=== PATIENT | male | born 1945 | race Caucasian/White ===

== ENCOUNTER 2017-12-20 15:35 | Emergency (ER) | payer MEDICARE, OTHER ==
[2017-12-20 16:35] LABS: Basophils % (A) 0 %; Eosinophils # (A) 0.2 k/uL (0-0.7); Eosinophils % (A) 2 %; HCT 44.8 % (39.0-53.0); HGB 14.9 gm/dL (13.0-17.5); Lymphocytes # (A) 1.2 k/uL (1.0-4.8); Lymphocytes % (A) 12 %; MCH 30.9 pg (25.0-35.0); MCHC 33.3 g/dL (31.0-37.0); MCV 92.7 fL (80.0-100.0); Mean Platelet Volume 8.6; Monocytes # (A) 0.6 k/uL (0-1.0); Monocytes % (A) 6 %; Neutrophils # (A) 7.7 k/uL (1.3-7.7); Neutrophils % (A) 79 %; Platelet Count 235 k/uL (150-450); RBC 4.84 m/uL (4.30-5.90); RDW 13.7 % (11.5-15.5); WBC 9.8 k/uL (3.8-10.6)
[2017-12-20 16:45] LABS: RBC,Urine >182 /hpf (0-5)
[2017-12-20 16:46] LABS: Anion Gap 11 mmol/L; Blood Urea Nitrogen 28 mg/dL (9-20); Calcium 9.7 mg/dL (8.4-10.2); Carbon Dioxide 25 mmol/L (22-30); Chloride 105 mmol/L (98-107); Color,Urine Dark Red; Glucose 122 mg/dL (74-99); Potassium 4.3 mmol/L (3.5-5.1); Sodium 141 mmol/L (137-145)
[2017-12-20 16:47] LABS: Appearance,Urine Bloody (Clear)
--- NOTE | 2017-12-20 17:15 | ED ---
Male Urogenital HPI - General Chief complaint: Urogenital Stated complaint: Hemturia Time Seen by Provider: 12/20/17 15:54 Source: patient, RN notes reviewed Mode of arrival: ambulatory Limitations: no limitations - History of Present Illness Initial comments: This is a 72-year-old male presents emergency Department chief complaint of hematuria. Patient symptoms started yesterday. He states he still able to urinate without difficulty. He denies any abdominal pain, flank pain. He does have a history kidney stones states that he's had hematuria in the past does see urology for this and prostate issues. Patient denies any blood thinners denies chest pain, shortness breath, headache or dizziness. - Related Data Home Medications Medication Instructions Recorded Confirmed Acetaminophen Tab [Tylenol Tab] 1,000 mg PO BID@06,199912/20/17 12/20/17 Calcium Polycarbophil [Fiber-Lax] 625 mg PO DAILY@59912/20/17 12/20/17 Cyclobenzaprine [Flexeril] 5 mg PO HS@199912/20/17 12/20/17 Finasteride [Proscar] 5 mg PO DAILY@0612/20/17 12/20/17 Loratadine [Claritin] 10 mg PO DAILY@0612/20/17 12/20/17 Losartan [Cozaar] 50 mg PO DAILY@0612/20/17 12/20/17 Simvastatin [Zocor] 20 mg PO DAILY@0600 12/20/17 12/20/17 Allergies Allergy/AdvReac Type Severity Reaction Status Date / Time No Known Allergies Allergy Verified 12/20/17 15:55 Review of Systems ROS Statement: Those systems with pertinent positive or pertinent negative responses have been documented in the HPI. ROS Other: All systems not noted in ROS Statement are negative. Past Medical History Past Medical History: Coronary Artery Disease (CAD), Hyperlipidemia, Hypertension, Prostate Disorder Additional Past Medical History / Comment(s): kidney stones History of Any Multi-Drug Resistant Organisms: None Reported Past Surgical History: No Surgical Hx Reported Past Psychological History: No Psychological Hx Reported Smoking Status: Never smoker Past Alcohol Use History: None Reported Past Drug Use History: None Reported General Exam Limitations: no limitations General appearance: alert, in no apparent distress Head exam: Present: atraumatic, normocephalic, normal inspection Respiratory exam: Present: normal lung sounds bilaterally. Absent: respiratory distress, wheezes, rales, rhonchi, stridor Cardiovascular Exam: Present: regular rate, normal rhythm, normal heart sounds. Absent: systolic murmur, diastolic murmur, rubs, gallop, clicks GI/Abdominal exam: Present: soft, normal bowel sounds. Absent: distended, tenderness, guarding, rebound, rigid Back exam: Absent: CVA tenderness (R), CVA tenderness (L) Course Vital Signs 12/20/17 15:46 Temperature 99.1 F Pulse Rate 115 H Respiratory 20 Rate Blood Pressure 145/73 O2 Sat by Pulse 97 Oximetry Medical Decision Making - Medical Decision Making 72-year-old male present emergency Department for hematuria. Patient's hearing is grossly bloody. Patient is a history of this. Patient's hemoglobin is stable lab work essentially unremarkable. We discussed that there is no treatment needed at this time as he is still urinating no difficulty, hemoglobin is stable. He is to follow-up with urology on Friday and return for any worsening symptoms. He's increase his fluid intake. We discussed possibilities of small stone but less likely. - Lab Data Result diagrams: 12/20/17 16:20 12/20/17 16:20 Lab Results 12/20/17 12/20/17 12/20/17 Range/Units 16:20 16:20 16:20 WBC 9.8 (3.8-10.6) k/uL RBC 4.84 (4.30-5.90) m/uL Hgb 14.9 (13.0-17.5) gm/dL Hct 44.8 (39.0-53.0) % MCV 92.7 (80.0-100.0) fL MCH 30.9 (25.0-35.0) pg MCHC 33.3 (31.0-37.0) g/dL RDW 13.7 (11.5-15.5) % Plt Count 235 (150-450) k/uL Neutrophils % 79 % Lymphocytes % 12 % Monocytes % 6 % Eosinophils % 2 % Basophils % 0 % Neutrophils # 7.7 (1.3-7.7) k/uL Lymphocytes # 1.2 (1.0-4.8) k/uL Monocytes # 0.6 (0-1.0) k/uL Eosinophils # 0.2 (0-0.7) k/uL Basophils # 0.0 (0-0.2) k/uL Sodium 141 (137-145) mmol/L Potassium 4.3 (3.5-5.1) mmol/L Chloride 105 (98-107) mmol/L Carbon Dioxide 25 (22-30) mmol/L Anion Gap 11 mmol/L BUN 28 H (9-20) mg/dL Creatinine 0.99 (0.66-1.25) mg/dL Est GFR (MDRD) Af Amer >60 (>60 ml/min/1.73 sqM) Est GFR (MDRD) Non-Af >60 (>60 ml/min/1.73 sqM) Glucose 122 H (74-99) mg/dL Calcium 9.7 (8.4-10.2) mg/dL Urine Color Dark Red Urine Appearance Bloody (Clear) Urine RBC >182 H (0-5) /hpf Disposition Clinical Impression: Hematuria Disposition: HOME SELF-CARE Condition: Stable Instructions: Hematuria (ED) Additional Instructions: Please return to the Emergency Department if symptoms worsen or any other concerns. Referrals: López Aburto MD [Primary Care Provider] - 1-2 days Rikki Lewis MD [STAFF PHYSICIAN] - 1-2 days Time of Disposition: 17:14
--- NOTE | 2017-12-20 17:34 | XR ---
EXAMINATION TYPE: XR [facility]UB DATE OF EXAM: 12/20/2017 CLINICAL DATA: 72-year-old male complaining of hematuria and dysuria for one day, pain, PHH COMPARISON: 08/23/2010 FINDINGS: Lung bases are clear. No evidence for free intraperitoneal air. Nondilated small bowel loops or small bowel air-fluid levels. Scattered air is present throughout the colon. Calcification in the low left hemipelvis probably phlebolith. Some prominent endplate spondylosis at the lumbosacral junction toward the left. IMPRESSION: No evidence for free air or bowel obstruction. Calcification low left hemipelvis probably a phlebolit h in the absence of left-sided renal colic.
[2017-12-20 17:52] VITALS: BP 125/75; PULSE 110; RESP 18; TEMP 97.7
== END 2017-12-20 17:54 | disposition home or self-care (01) ==
LOC: EC 15:35
DX: R31.9 Hematuria, unspecified (principal); E78.5 Hyperlipidemia, unspecified; I10 Essential (primary) hypertension; I25.10 Atherosclerotic heart disease of native coronary artery without angina pectoris; N42.9 Disorder of prostate, unspecified; Z79.899 Other long term (current) drug therapy
CPT/HCPCS: 36415; 74018; 80048; 81001; 85025; 87086; 99283

== ENCOUNTER → 2018-01-05 | Outpatient (CLI) | payer MEDICARE, OTHER ==
--- NOTE | 2018-01-05 11:17 | US ---
EXAMINATION TYPE: US kidneys/renal and bladder DATE OF EXAM: 01/05/2018 COMPARISON: US renal 02/08/2015. KUB x-ray December 20, 2017. CLINICAL HISTORY: R31.0 Gross Hematuria. EXAM MEASUREMENTS: Right Kidney: 10.1 x 6.3 x 4.9 cm Left Kidney: 10.0 x 4.8 x 5.1 cm Right Kidney: No hydronephrosis. Cystic area visualized mid pole measuring 0.9 x 0.6 x 0.8 cm Left Kidney: No hydronephrosis. Cystic area visualized mid pole measuring 0.8 x 0.6 x 0.8 cm Bladder: Hyperechoic area seen on previous exam is again visualized. This area measures 3.1 x 1.8 x 3 .1 cm compared to 1.9 x 0.8 x 2.5 cm on 02/08/2015. There does appear to be vascularity within this ar ea. Bilateral Jets seen: Yes A few tiny simple appearing cysts are marked in both kidneys. There is redemonstration of irregular h yperechoic area with vascularity more prominent in the bladder base IMPRESSION: Possible intraluminal bladder mass or neoplasm, further investigation with repeat cystoscopy is advis ed given patient's symptoms.
== END | disposition home or self-care (01) ==
LOC: RADUSWWP 09:56
PROVIDERS: ATTEND Urology
DX: R31.0 Gross hematuria (principal)
CPT/HCPCS: 76770